=== PATIENT | male | born 1990 | race Caucasian/White ===

== ENCOUNTER 2021-03-22 11:31 | Emergency (ER) | payer BC ==
[~2021-03-22] VITALS: Ht 182.9 cm; Wt 80.0 kg
[2021-03-22 11:31] VITALS: BP 140/80
--- NOTE | 2021-03-22 11:57 | PHYS DOC ---
Adult General Chief Complaint Chief Complaint: EYE PROBLEMS HPI HPI Patient is a 30-year-old male presenting for left eye problem. Patient was cutting steel when he felt a piece flipped up into his left eye. He visited local urgent care who subsequently referred him to our facility for definitive management as there is concern for retained piece of steel in his eye. He is not wearing eye protection. He does not wear contacts. He has no other medical issues, takes no medications on a daily basis. Reports foreign body sensation but denies any significant changes in vision since symptom onset Review of Systems Review of Systems Fourteen body systems of review of systems have been reviewed. See HPI for pertinent positives and negative responses, other mane all other systems are negative, non-pertinent or non-contributory Physical Exam Physical Exam Constitutional: Well developed, well nourished, no acute distress, non-toxic appearance. HENT: Normocephalic, atraumatic, bilateral external ears normal, oropharynx moist, no oral exudates, nose normal. Eyes: The patient was examined with the slit lamp. Extraocular movements are intact Pupils are equally round and reactive to light Visual acuity: Intact from reported numbers obtained at urgent care upstairs Eyelids/under eyelids: normal Conjunctivae and sclera: Normal Patient does have a minute piece of steel embedded on superior surface of the left eye at 3 o'clock position overlying cornea with small rust ring present Corneas: normal without fluorescein uptake, and negative Mina sign. Anterior chambers: normal without cell, flare, or hyphema Neck: Normal range of motion, no tenderness, supple, no stridor. Cardiovascular: Heart rate regular per monitor Lungs & Thorax: No respiratory distress or accessory muscle use, bilateral chest rise Abdomen: Abdomen soft, non-tender, bowel sounds present in all quadrants, no guarding or rebound, nonacute abdomen. Skin: Warm, dry, no erythema, no rash. Back: No tenderness, no CVA tenderness. Extremities: No tenderness, no cyanosis, no clubbing, ROM intact, no edema. Neurologic: Alert and oriented X 3, grossly normal motor & sensory function, no focal deficits noted. Psychologic: Anxious affect and mood Current Patient Data Vital Signs Vital Signs Date Time Temp Pulse Resp B/P (MAP) Pulse Ox O2 Delivery O2 Flow Rate FiO2 03/22/21 11:31 98.6 70 14 140/80 (100) 100 Room Air Vital Signs Date Time Temp Pulse Resp B/P (MAP) Pulse Ox O2 Delivery O2 Flow Rate FiO2 03/22/21 11:31 98.6 70 14 140/80 (100) 100 Room Air EKG EKG [] Radiology/Procedures Radiology/Procedures [] Heart Score C/O Chest Pain: No Risk Factors: Risk Factors: DM, Current or recent (<one month) smoker, HTN, HLP, family history of CAD, obesity. Risk Scores: Risk Factors: DM, Current or recent (<one month) smoker, HTN, HLP, family history of CAD, obesity. Course & Med Decision Making Course & Med Decision Making ABCs unremarkable HPI physical exam concerning for retained foreign body in left eye Verbal consent was obtained. Tetracaine drop applied to left eye. Formal eye examination performed consistent with retained foreign body ER sabino brush nonoperable. As such, what cotton swab tip was used in a rolling fashion to remove foreign body. Approximately 30% of retained steel fragment removed but after significant effort, foreign body remains On-call ophthalmology team, [facility], was contacted and case reviewed. Joint decision made to discharge patient from ER setting with instructions for mother to drive patient immediately to their center for definitive management I updated patient and mother on plan of care that included ER departure with instructions to follow-up at [facility] for definitive ophthalmologic care. They were amenable. All questions and concerns addressed prior to ER departure Dragon Disclaimer Dragon Disclaimer This electronic medical record was generated, in whole or in part, using a voice recognition dictation system. Departure Departure: Impression: Primary Impression: Foreign body of left eye Disposition: HOME / SELF CARE / HOMELESS Condition: STABLE Referrals: PCP,NO (PCP) Additional Instructions: As discussed prior to ER departure, you have a retained body within your left eye. A significant amount of this was removed while in ER setting but there still remains some product which is concerning. As such, I contacted the [facility] and they want to see you today for definitive management. They are specialized eye physicians who have better tools available at their facility to remove such foreign body. They are located at [address] [place] [id number]. They want to see you today at 2:30 PM. Please call our ER at [phone] if any problems arise prior to that time or you have trouble finding this office. It was a pleasure to take care of you and I wish you the best going forward FLOYD GOVEA DO Mar 22, 2021 11:57
== END 2021-03-22 13:19 | disposition home or self-care (01) ==
LOC: ER 11:31
DX: T15.92XA Foreign body on external eye, part unspecified, left eye, initial encounter (principal); H44.71 Retained (nonmagnetic) (old) foreign body in anterior chamber; X58.XXXA Exposure to other specified factors, initial encounter; Y93.89 Activity, other specified; Y92.89 Other specified places as the place of occurrence of the external cause; Y99.8 Other external cause status
CPT/HCPCS: 65205; 99284